=== PATIENT | female | born 1935 | race Caucasian/White ===

== ENCOUNTER → 2017-09-17 | Outpatient (CLI) | payer OTHER | LOC: BMCIMAGING 13:55 | PROVIDERS: ATTEND Family Medicine | DX: Z13.820 Encounter for screening for osteoporosis (principal); M81.0 Age-related osteoporosis without current pathological fracture ==

== ENCOUNTER → 2018-08-12 | Outpatient (CLI) | payer OTHER | LOC: GIMAGING 10:38 → EDSTATUS 16:03 | PROVIDERS: ATTEND Family Medicine | DX: M19.011 Primary osteoarthritis, right shoulder (principal); M25.9 Joint disorder, unspecified; M43.12 Spondylolisthesis, cervical region | CPT/HCPCS: 72040-PO; 73030-PO ==

== ENCOUNTER → 2018-09-16 | Outpatient (CLI) | payer OTHER | LOC: GIMAGING 13:54 → EDSTATUS 16:02 | PROVIDERS: ATTEND Family Medicine | DX: M24.841 Other specific joint derangements of right hand, not elsewhere classified (principal) | CPT/HCPCS: 73130-PO ==